=== PATIENT | male | born 1965 | race Caucasian/White ===

== ENCOUNTER 2017-03-28 10:32 | Emergency (ER) | payer SELFPAY ==
[~2017-03-28] VITALS: Ht 167.6 cm; Wt 74.8 kg
[2017-03-28 10:35] VITALS: BP_SYST 152
[2017-03-28] MEDS ORDERED: MORPHINE 2 MG/ML INJ. SYRINGE IM ONE (10:45)
[2017-03-28] MEDS ORDERED: ONDANSETRON 4 MG ODT TAB PO ONE (10:45)
[2017-03-28 12:13] LABS: HEMATOCRIT 48.6 % (36-54); HEMOGLOBIN 15.6 g/dL (14.0-18.0); MEAN CORPUSCULAR HEMOGLOBIN 31 pg (27-31); MEAN CORPUSCULAR HGB CONC 32 % (32-36); MEAN CORPUSCULAR VOLUME 96 fL (79.0-98.0); PLATELET COUNT (AUTO) 325 K/uL (130-430); RED BLOOD CELL COUNT(AUTO) 5.06 MIL/uL (4.2-6.2); RED CELL DISTRIBUTION WIDTH 12.4 % (9.0-15.0)
[2017-03-28 12:31] LABS: PROTHROMBIN TIME 10.3 SECS (9.5-12.5)
[2017-03-28 12:40] LABS: CALCIUM 9.3 mg/dL (8.4-11.0); CREATININE 0.94 mg/dL (0.55-1.30); POTASSIUM 4.2 mmol/L (3.5-5.1)
[2017-03-28 12:51] LABS: BASOPHILS % (MANUAL) 0 % (0-2); EOSINOPHILS % (MANUAL) 1 % (0-7); LYMPHOCYTES % (MANUAL) 10 % (20-46); MONOCYTES % (MANUAL) 5 % (0-11)
[2017-03-28] MEDS ORDERED: MORPHINE 2 MG/ML INJ. SYRINGE IVP ONE (13:15)
[2017-03-28 19:00] VITALS: BP_SYST 147
== END 2017-03-28 19:00 | disposition home or self-care (01) ==
LOC: SED 10:32
DX: S42.351A Displaced comminuted fracture of shaft of humerus, right arm, initial encounter for closed fracture (principal); S00.511A Abrasion of lip, initial encounter; Z95.9 Presence of cardiac and vascular implant and graft, unspecified; W18.09XA Striking against other object with subsequent fall, initial encounter; Y93.01 Activity, walking, marching and hiking; Y92.89 Other specified places as the place of occurrence of the external cause; Y99.8 Other external cause status
CPT/HCPCS: 29105; 36415; 73030; 73060; 80048; 85007; 85027; 85610; 85730; 96372; 99285; J2270; Q0162